=== PATIENT | female | born 1980 | race Caucasian/White ===

== ENCOUNTER 2023-11-12 14:11 | Emergency (ER) | payer BC ==
[~2023-11-12] VITALS: Ht 170.2 cm; Wt 111.1 kg
[2023-11-12 14:15] VITALS: BP 122/83; TEMP 98
[2023-11-12 16:24] VITALS: O2SAT 99
== END 2023-11-12 16:25 | disposition home or self-care (01) ==
LOC: ER 14:11
DX: S60.222A Contusion of left hand, initial encounter (principal); S20.212A Contusion of left front wall of thorax, initial encounter; G51.0 Bell's palsy; Z60.2 Problems related to living alone; Z88.0 Allergy status to penicillin; V89.2XXA Person injured in unspecified motor-vehicle accident, traffic, initial encounter; Y93.89 Activity, other specified; Y92.89 Other specified places as the place of occurrence of the external cause; Y99.8 Other external cause status
CPT/HCPCS: 73130-TC